=== PATIENT | female | born 1950 ===

== ENCOUNTER 2016-08-01 12:05 | Emergency (ER) | payer MEDICARE, OTHER ==
[2016-08-01 12:33] VITALS: BMI 32.0
[2016-08-01 12:35] VITALS: TEMP 98.1
--- NOTE | 2016-08-01 13:33 | C.PDOC ---
History Of Present Illness 66 y/o female presents to ED with c/o left lower back pain. Patient states she injured her back while getting into a car yesterday, reporting twisting injury. Denies radiation of pain, neurological deficits, bowel or urinary incontinence, abdominal pain, nausea, vomiting, dysuria, fever, chills, chest pain, or other associated symptoms. Patient denies any trauma. Time Seen by Provider: 08/01/16 13:11 Chief Complaint (Nursing): Lower Extremity Problem/Injury History Per: Patient History/Exam Limitations: no limitations Onset/Duration Of Symptoms: Days Current Symptoms Are (Timing): Still Present Recent travel outside of the [place] States: No Past Medical History Reviewed: Historical Data, Nursing Documentation, Vital Signs Vital Signs: Last Vital Signs Temp 98.1 F 08/01/16 12:34 Pulse 61 08/01/16 12:34 Resp 17 08/01/16 12:34 BP 115/64 08/01/16 12:34 Pulse Ox 100 08/01/16 14:02 - Medical History PMH: Asthma, COPD, Hypercholesterolemia - [facility] Procedures EXCISION OF STOMACH, ENDO, DIAGN (11/23/15) INJECT/INFUSE NEC (04/24/06) MAGNETIC RESONANCE IMAGING OF BRAIN AND BRAIN STEM (04/10/04) MAGNETIC RESONANCE IMAGING OF SPINAL CANAL (04/10/04) NEBULIZER THERAPY (08/24/02) RESECTION OF GALLBLADDER, PERCUTANEOUS ENDOSCOPIC APPROACH (11/23/15) Family History: States: Unknown Family Hx - Social History Hx Tobacco Use: No (Quit) Hx Alcohol Use: Yes Hx Substance Use: No - Immunization History Hx Tetanus Toxoid Vaccination: No Hx Influenza Vaccination: No Hx Pneumococcal Vaccination: Yes Review Of Systems Except As Marked, All Systems Reviewed And Found Negative. Constitutional: Negative for: Fever, Chills Cardiovascular: Negative for: Chest Pain Respiratory: Negative for: Shortness of Breath Gastrointestinal: Negative for: Nausea, Vomiting, Abdominal Pain Musculoskeletal: Positive for: Back Pain. Negative for: Neck Pain Skin: Negative for: Rash Neurological: Negative for: Weakness, Numbness, Headache Physical Exam - Physical Exam Appears: Non-toxic, No Acute Distress Skin: Normal Color, Warm, Dry Head: Atraumatic, Normacephalic Neck: Normal ROM, No Midline Cervical Tenderness, No Paracervical Tenderness, No Step Off Deformity, Supple Chest: Symmetrical Cardiovascular: Rhythm Regular Respiratory: Normal Breath Sounds, No Rales, No Rhonchi, No Wheezing Gastrointestinal/Abdominal: Soft, No Tenderness, No Guarding, No Rebound Back: No Vertebral Tenderness, Paraspinal Tenderness (left, lumbar) Extremity: Normal ROM, Capillary Refill (< 2 sec. ) Extremity: Bilateral: Normal Color And Temperature Neurological/Psych: Oriented x3, Normal Speech, Normal Cognition, Normal Motor, Normal Sensation ED Course And Treatment O2 Sat by Pulse Oximetry: 100 (RA) Pulse Ox Interpretation: Normal Progress Note: pt feeling decreased pain, appears more comfortable. will d/c with flexeril and motrin. pmd f/u Reevaluation Time: 13:58 Reassessment Condition: Improved Medical Decision Making Medical Decision Making: Plan: * Toradol * Flexeril * Reassess Progress: Disposition - Disposition Referrals: Melida Soto MD [Primary Care Provider] - Disposition: HOME/ ROUTINE Disposition Time: 13:58 Condition: IMPROVED Additional Instructions: Take medications as prescribed. Muscle relaxants will make you sleepy- do not drive, operate machinery, while taking these. Follow up with Dr Soto in a few days. Return to ER for any worsneing symptoms. 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 - Scribe Statement The provider has reviewed the documentation as recorded by the Joseph Costello All medical record entries made by the Joseph were at my direction and personally dictated by me. I have reviewed the chart and agree that the record accurately reflects my personal performance of the history, physical exam, medical decision making, and the department course for this patient. I have also personally directed, reviewed, and agree with the discharge instructions and disposition.
[2016-08-01 14:11] VITALS: BP 132/75; PULSE 65; RESP 18
[2016-08-02 13:44] VITALS: O2SAT 100
== END 2016-08-01 14:20 | disposition home or self-care (01) ==
LOC: SUPCPDRO 12:05 → C.ER 12:05
DX: M54.5 Low back pain (principal)
CPT/HCPCS: 96372; 99285; J1885

== ENCOUNTER 2017-09-06 13:56 | Inpatient (IN) | payer MEDICARE, OTHER ==
[2017-09-06 13:56] VITALS: BMI 32.0
[2017-09-06] MEDS ORDERED: Sodium Chloride 0.9% 1,000 ML IV SCH (15:00)
[2017-09-06 15:22] LABS: BASO # 0.1 K/uL (0.0-0.2); BASO % 1.4 % (0.0-2.0); EOS # 0.3 K/uL (0.0-0.7); EOS % 4.3 % (0.0-4.0); HEMOGLOBIN 10.2 g/dL (11.0-16.0); LYMPH # 2.7 K/uL (1.0-4.3); LYMPH % 33.3 % (20.0-40.0); MEAN CELL VOLUME 76.2 fL (81.0-99.0); MEAN CORPUSCULAR HEMOGLOBIN 24.2 pg (27.0-31.0); MEAN CORPUSCULAR HGB CONC 31.7 g/dL (33.0-37.0); MEAN PLATELET VOLUME 8.9 fL (7.2-11.7); MONO # 0.8 K/uL (0.0-0.8); MONO % 9.4 % (0.0-10.0); NEUT # 4.1 K/uL (1.8-7.0); NEUT % 51.6 % (50.0-75.0); RBC 4.23 Mil/uL (3.80-5.20); RED CELL DISTRIBUTION WIDTH 16.3 % (11.5-14.5)
[2017-09-06] MEDS ORDERED: Sodium Chloride 0.9% 1,000 ML ONE (15:22)
[2017-09-06 15:25] LABS: SQUAMOUS EPITHIAL 3 /hpf (0-5); URINE BACTERIA RARE (<OCC); URINE BILIRUBIN NEGATIVE (NEGATIVE); URINE BLOOD NEGATIVE (NEGATIVE); URINE CLARITY Hazy (Clear); URINE COLOR Yellow (YELLOW); URINE GLUCOSE (UA) NORMAL (Normal); URINE LEUKOCYTE ESTERASE TRACE Leu/uL (Negative); URINE PROTEIN NEGATIVE (NEGATIVE); URINE UROBILINOGEN NORMAL mg/dL (0.2-1.0)
[2017-09-06 15:30] LABS: INR 1.1; PROTHROMBIN TIME 11.6 SECONDS (9.7-12.2)
[2017-09-06 15:31] LABS: ALB/GLOB RATIO 1.2 (1.0-2.1); ALBUMIN 4.2 g/dL (3.5-5.0); ALT/SGPT 30 U/L (9-52); AST/SGOT 24 U/L (14-36); BLOOD UREA NITROGEN 16 mg/dL (7-17); GFR AFRICAN-AMERICAN > 60; GFR NON-AFRICAN AMERICAN > 60; HDL CHOLESTEROL 42 mg/dL (30-70)
[2017-09-06 15:42] LABS: LDL CHOLESTEROL 102 mg/dL (0-129)
--- NOTE | 2017-09-06 15:43 | CT ---
PROCEDURE: CT HEAD WITHOUT CONTRAST. HISTORY: increased R body weak, h/o CVA with R body weak COMPARISON: None available. TECHNIQUE: Axial computed tomography images were obtained through the head/brain without intravenous contrast. Radiation dose: Total exam DLP = 51.4 mGy-cm. This CT exam was performed using one or more of the following dose reduction techniques: Automated exposure control, adjustment of the mA and/or kV according to patient size, and/or use of iterative reconstruction technique. FINDINGS: HEMORRHAGE: No acute intracranial hemorrhage. BRAIN: Encephalomalacia in the medial right frontal lobe. Aneurysm clips versus coil mass in the medial left frontal lobe and in the right parasellar atrophy. Mild chronic microvascular ischemic changes region. VENTRICLES: Unremarkable. No hydrocephalus. CALVARIUM: Multiple craniotomy/ cranioplasty defects. PARANASAL SINUSES: Unremarkable as visualized. No significant inflammatory changes. MASTOID AIR CELLS: Unremarkable as visualized. No inflammatory changes. OTHER FINDINGS: None. IMPRESSION: No acute intracranial pathology. Nonacute findings as above.
[2017-09-06] MEDS ORDERED: Aspirin 325 mg EC Tablets PO STA (16:36)
--- NOTE | 2017-09-06 16:36 | C.PDOC ---
History Of Present Illness 67 y/o female presents to the ER complaining increased edema to face, right arm , and right leg. Patient states that she feels a sensation of swelling. Patient reports that she sleeps in various positions throughout the night. She notes that she has a history of CVA (R>L weakness). Time Seen by Provider: 09/06/17 14:50 Chief Complaint (Nursing): Medical Clearance History Per: Patient History/Exam Limitations: no limitations Onset/Duration Of Symptoms: Hrs Current Symptoms Are (Timing): Still Present Severity: Moderate Past Medical History Reviewed: Historical Data, Nursing Documentation, Vital Signs Vital Signs: Last Vital Signs Temp 97.6 F 09/06/17 20:00 Pulse 82 09/06/17 20:00 Resp 20 09/06/17 20:00 BP 133/79 09/06/17 20:00 Pulse Ox 97 09/06/17 20:00 - Medical History PMH: Asthma, COPD, CVA, Hypercholesterolemia Denies: Chronic Kidney Disease Other Surgeries: Hx of surgeries - [facility] Procedures EXCISION OF STOMACH, ENDO, DIAGN (11/23/15) INJECT/INFUSE NEC (04/24/06) MAGNETIC RESONANCE IMAGING OF BRAIN AND BRAIN STEM (04/10/04) MAGNETIC RESONANCE IMAGING OF SPINAL CANAL (04/10/04) NEBULIZER THERAPY (08/24/02) RESECTION OF GALLBLADDER, PERCUTANEOUS ENDOSCOPIC APPROACH (11/23/15) Family History: States: No Known Family Hx - Social History Hx Tobacco Use: No (Quit) Hx Alcohol Use: Yes Hx Substance Use: No - Immunization History Hx Tetanus Toxoid Vaccination: No Hx Influenza Vaccination: No Hx Pneumococcal Vaccination: Yes Review Of Systems Except As Marked, All Systems Reviewed And Found Negative. Constitutional: Negative for: Fever, Chills Skin: Positive for: Other (increased edema) Physical Exam - Physical Exam Appears: Non-toxic, No Acute Distress Skin: Normal Color, Warm, Dry Head: Atraumatic, Normacephalic, Other ((-) facial droop) Nose: Normal Oral Mucosa: Moist Neck: Supple Chest: Symmetrical Cardiovascular: Rhythm Regular Respiratory: Normal Breath Sounds, No Rales, No Rhonchi, No Wheezing Gastrointestinal/Abdominal: Normal Exam, Soft, No Tenderness, No Guarding, No Rebound Extremity: Normal ROM, Other (4 extremities - obese with edema, ankle splint to prevent plantar fasciitis) Neurological/Psych: Oriented x3, Normal Speech, Normal Motor (4/5 strength to right leg), Normal Sensation ED Course And Treatment - Laboratory Results Result Diagrams: 09/06/17 15:16 09/06/17 15:16 Lab Interpretation: Normal (UA neg.) ECG: Interpreted By Sd ECG Rhythm: Sinus Rhythm ECG Interpretation: Normal Rate From EC O2 Sat by Pulse Oximetry: 99 (RA) Pulse Ox Interpretation: Normal - Radiology CXR: Interpreted by Sd CXR Interpretation: Yes: No Acute Disease - CT Scan/US CT-Head Other Rad Studies (CT/US): Read By Radiologist, Radiology Report Reviewed CT/US Interpretation: PROCEDURE: CT HEAD WITHOUT CONTRAST. HISTORY: increased R body weak, h/o CVA with R body weak. COMPARISON: None available. TECHNIQUE: Axial computed tomography images were obtained through the head/ brain without intravenous contrast. Radiation dose: Total exam DLP = 51.4 mGy- cm. This CT exam was performed using one or more of the following dose reduction techniques: Automated exposure control, adjustment of the mA and/or kV according to patient size, and/or use of iterative reconstruction technique. FINDINGS: HEMORRHAGE: No acute intracranial hemorrhage. BRAIN: Encephalomalacia in the medial right frontal lobe. Aneurysm clips versus coil mass in the medial left frontal lobe and in the right parasellar atrophy. Mild chronic microvascular ischemic changes region. VENTRICLES: Unremarkable. No hydrocephalus. CALVARIUM: Multiple craniotomy/ cranioplasty defects. PARANASAL SINUSES: Unremarkable as visualized. No significant inflammatory changes. MASTOID AIR CELLS: Unremarkable as visualized. No inflammatory changes. OTHER FINDINGS: None. IMPRESSION: No acute intracranial pathology. Nonacute findings as above. Reevaluation Time: 16:33 Reassessment Condition: Unchanged (remains asymptomatic and normal b/l extremeties without edema.) - Physician Consult Information Outcome Of Conversation: [id number]: d/w Dr. Walker, Hospitalist- covering pt's for Dr. Alycia boo to admit. plan Neuro Consult and MRI NIHSS Stroke Scale 2 - Date/Time Evaluation Performed Date Performed: 09/06/17 Time Performed: 14:50 When Was NIHSS Performed: Baseline - How Severe is the Stroke Level of Consciousness: 0=Alert LOC to Questions: 0=Both comments correct LOC to commands: 0=Obeys both correctly Best Gaze: 0=Normal Visual: 0=No visual loss Facial: 0=Normal Motor Arm - Left: 0=No drift Motor Arm - Right: 0=No drift Motor Leg - Left: 0=No drift Motor Leg - Right: 1=Drift before 5 sec Limb Ataxia: 0=Absent Sensory: 0=Normal Best Language: 0=No aphasia Dysarthia: 0=Normal articulation Extinction & Inattention (Neglect): 0=Normal, no object Score: 1 rTPA Inclusion/Exclusion - Refusal of Treatment Patient Refused Treatment: No - Inclusion Criteria for Altepase Patient is 18 years or Older: Yes The Clinical Diagnosis of Ischemic Stroke That is Causing a Potentially Disabling Neurological Deficit: No Time of Onset is Well Established to be Less Than 270 Minute Before Treatment Would Begin: No Risk/Benefit Discussed With Patient/Family Member Present: No - Exclusion Criteria for Altepase Uncontrolled Hypertension at Time of Treatment (Systolic BP above 185 or Diastolic BP above 110 mmHg): No Less Than 3 Months Had a Recent: Intracranial History of: Intracranial hemorrhage Active Internal Bleeding: No Known Bleeding Diathesis Including but Not Limited to: Platelets Below 100,000/ mm,PTT Above 40 sec After Heparin Use, Current Use of Oral Anitcoagulant With INR Greater Than 1.7 or PT Greater Than 15 secs: No Evidence of an Intracranial Hemorrhage: No Evidence of Major Acute Infarct With Signs Greater Than 1/3 MCA Territory: No Suspicion of Subarachnoid Hemorrhage on Pretreatment Evaluation Even if CT Head Negative For Hemorrhage: No - Warning to TPA With Conditions Following Conditions Weighed Against Anticipated Benefit: No Condition: Stroke Serevity Too Mild Medical Decision Making Medical Decision Making: NO new R arm edema nor facial droop No new CT head changes adm for f/u and Neuro consult. Disposition Doctor Will See Patient In The: Hospital Counseled Patient/Family Regarding: Studies Performed, Diagnosis - Disposition Disposition: HOSPITALIZED Disposition Time: 16:40 Condition: GOOD - Clinical Impression Clinical Impression: Weakness of right side of body - Scribe Statement The provider has reviewed the documentation as recorded by the Joseph Souza Provider Attestation: All medical record entries made by the Joseph were at my direction and personally dictated by me. I have reviewed the chart and agree that the record accurately reflects my personal performance of the history, physical exam, medical decision making, and the department course for this patient. I have also personally directed, reviewed, and agree with the discharge instructions and disposition.
--- NOTE | 2017-09-06 16:42 | RAD ---
HISTORY: Code Stroke COMPARISON: Chest radiograph dated 02/22/2016. FINDINGS: LUNGS: No active pulmonary disease. PLEURA: No significant pleural effusion identified, no pneumothorax apparent. CARDIOVASCULAR: Atherosclerotic aortic calcifications. Cardiomediastinal silhouette within normal limits. OSSEOUS STRUCTURES: Unchanged. VISUALIZED UPPER ABDOMEN: Normal. OTHER FINDINGS: None. IMPRESSION: No active disease.
[2017-09-06] MEDS ORDERED: Albuterol HFA 90 mcg/actuation (8 g) INH PRN (20:03)
--- NOTE | 2017-09-06 20:50 | CP.PCM.HP ---
<Bee Alford P - Last Filed: 09/06/17 23:18> History of Present Illness - History of Present Illness History of Present Illness: 67 yo Female with past medical history of CVA with residual R sided weakness ( 2006), Hyperlipidemia, and COPD presents to the ED complaining of gradual increase of RLE weakness for the past month, which worsens with ambulation and standing from seated position. Pt normally walks with cane and R leg brace. Patient complains of lower extremity swelling for the past week, also R eye and RUE swelling that began upon awaking today. States. Patient states her son became concerned because "she did not look good" prompting her to come to ED. No relieving factors noted. Patient denies fever, chills, headache, numbness, tingling, acute change in vision, acute change in hearing, chest pain, palpitations, shortness of breath. PMHx: CVA with residual R sided weakness (2006), Hyperlipidemia, and COPD PSHx: Brain aneurysm repair 2004, Surgical clipping sp hemorrhagic stroke 2006, Lap cholecystectomy 2015, breast cyst removal 1998, Hysterectomy 1986, R foot surgery 1985, 1977. Allergies: NKDA Meds: Ventalin 2 puffs Q4 PRN, Crestor 10mg daily, Declofenac topical TID PRN, aggrenox-unknown dose (will confirm with pt's pharmacy [phone]) Family Hx: Mother-Epilepsy, (age 40s), Father-Liver cirrhosis, . Sister- breast cancer, (age 40s). Social: former smoker- 30 pack years, quit in 1999. 1-2 beers on the weekends. Denies illicit drug use. Retired security vehicle patrol officer. Lives with partner. Present on Admission - Present on Admission Any Indicators Present on Admission: No History of DVT/PE: No History of Uncontrolled Diabetes: No Urinary Catheter: No Decubitus Ulcer Present: No Past Patient History - Infectious Disease Hx of Infectious Diseases: None - Past Medical History & Family History Past Medical History?: Yes - Past Social History Smoking Status: Former Smoker - CARDIAC Hx Hypercholesterolemia: Yes - PULMONARY Hx Asthma: Yes Hx Chronic Obstructive Pulmonary Disease (COPD): Yes - NEUROLOGICAL HX Cerebrovascular Accident: Yes (2006) - HEENT Hx HEENT Problems: No - RENAL Hx Chronic Kidney Disease: No - ENDOCRINE/METABOLIC Hx Endocrine Disorders: No - HEMATOLOGICAL/ONCOLOGICAL Hx Blood Disorders: No - INTEGUMENTARY Hx Dermatological Problems: No - MUSCULOSKELETAL/RHEUMATOLOGICAL Hx Musculoskeletal Disorders: No Hx Falls: No - GASTROINTESTINAL Hx Gastrointestinal Disorders: No - GENITOURINARY/GYNECOLOGICAL Hx Genitourinary Disorders: No - PSYCHIATRIC Hx Substance Use: No - SURGICAL HISTORY Hx Surgeries: Yes Other/Comment: Cerebral aneurysm repair 2007 - ANESTHESIA Hx Anesthesia: Yes Hx Anesthesia Reactions: No Meds Allergies/Adverse Reactions: Allergies Allergy/AdvReac Type Severity Reaction Status Date / Time No Known Allergies Allergy Verified 09/06/17 14:07 Physical Exam - Constitutional Appears: Well, No Acute Distress - Head Exam Head Exam: ATRAUMATIC, NORMOCEPHALIC - Eye Exam Eye Exam: EOMI, PERRL Pupil Exam: NORMAL ACCOMODATION Additional comments: Mild infraorbital swelling noted on R. - ENT Exam ENT Exam: Mucous Membranes Moist - Neck Exam Neck exam: Positive for: Full Rom - Respiratory Exam Respiratory Exam: Clear to Auscultation Bilateral. absent: Rales, Rhonchi, Wheezes - Cardiovascular Exam Cardiovascular Exam: REGULAR RHYTHM, +S1, +S2. absent: Systolic Murmur - GI/Abdominal Exam GI & Abdominal Exam: Normal Bowel Sounds, Soft. absent: Tenderness - Extremities Exam Additional comments: trace edema noted bilateral lower extremities; non-tender to palpation. No edema noted to bilateral upper extremities; non-tender to palpation, full ROM. - Neurological Exam Neurological exam: Alert, CN II-XII Intact, Oriented x3 Additional comments: 5/5 muscle strength bilateral upper extremities. 4/5 strength R lower extremity. 5/5 strength L lower extremity. Decreased sensation to RLE, otherwise sensation intact. - Psychiatric Exam Psychiatric exam: Normal Affect, Normal Mood - Skin Skin Exam: Dry, Intact, Warm Results - Vital Signs Recent Vital Signs: Last Vital Signs Temp 98.5 F 09/06/17 14:05 Pulse 64 09/06/17 18:48 Resp 21 09/06/17 18:48 BP 128/94 H 09/06/17 18:48 Pulse Ox 98 09/06/17 18:48 - Labs Result Diagrams: 09/06/17 15:16 09/06/17 15:16 Labs: Laboratory Results - last 24 hr 09/06/17 09/06/17 09/06/17 15:05 15:16 15:16 WBC 8.0 RBC 4.23 Hgb 10.2 L D Hct 32.2 L MCV 76.2 L D MCH 24.2 L MCHC 31.7 L RDW 16.3 H Plt Count 303 MPV 8.9 Neut % (Auto) 51.6 Lymph % (Auto) 33.3 [place] % (Auto) 9.4 Eos % (Auto) 4.3 H Baso % (Auto) 1.4 Neut # (Auto) 4.1 Lymph # (Auto) 2.7 [place] # (Auto) 0.8 Eos # (Auto) 0.3 Baso # (Auto) 0.1 PT 11.6 INR 1.1 APTT 32 Sodium Potassium Chloride Carbon Dioxide Anion Gap BUN Creatinine Est GFR ( Amer) Est GFR (Non-Af Amer) POC Glucose (mg/dL) 96 Random Glucose Hemoglobin A1c Calcium Total Bilirubin AST ALT Alkaline Phosphatase Troponin I Total Protein Albumin Globulin Albumin/Globulin Ratio Triglycerides Cholesterol LDL Cholesterol Direct HDL Cholesterol Urine Color Urine Clarity Urine pH Ur Specific [place] Urine Protein Urine Glucose (UA) Urine Ketones Urine Blood Urine Nitrate Urine Bilirubin Urine Urobilinogen Ur Leukocyte Esterase Urine WBC (Auto) Urine RBC (Auto) Ur Squamous Epith Cells Urine Bacteria 09/06/17 09/06/17 09/06/17 15:16 15:16 15:16 WBC RBC Hgb Hct MCV MCH MCHC RDW Plt Count MPV Neut % (Auto) Lymph % (Auto) [place] % (Auto) Eos % (Auto) Baso % (Auto) Neut # (Auto) Lymph # (Auto) [place] # (Auto) Eos # (Auto) Baso # (Auto) PT INR APTT Sodium 143 Potassium 4.3 Chloride 107 Carbon Dioxide 27 Anion Gap 14 BUN 16 Creatinine 0.8 Est GFR ( Amer) > 60 Est GFR (Non-Af Amer) > 60 POC Glucose (mg/dL) Random Glucose 100 Hemoglobin A1c 6.0 Calcium 9.0 Total Bilirubin 0.7 AST 24 ALT 30 Alkaline Phosphatase 84 Troponin I < 0.0120 Total Protein 7.6 Albumin 4.2 Globulin 3.4 Albumin/Globulin Ratio 1.2 Triglycerides 66 D Cholesterol 161 LDL Cholesterol Direct 102 HDL Cholesterol 42 Urine Color Yellow Urine Clarity Hazy Urine pH 5.0 Ur Specific [place] 1.020 Urine Protein Negative Urine Glucose (UA) Normal Urine Ketones Negative Urine Blood Negative Urine Nitrate Negative Urine Bilirubin Negative Urine Urobilinogen Normal Ur Leukocyte Esterase Trace Urine WBC (Auto) 4 Urine RBC (Auto) 1 Ur Squamous Epith Cells 3 Urine Bacteria Rare Assessment & Plan - Assessment and Plan (Free Text) Assessment: 67 yo Female with past medical history of CVA with residual R sided weakness ( 2006), Hyperlipidemia, and COPD presents to the ED complaining of gradual increase of RLE weakness for the past month. Plan: 1. Increasing R lower extremity weakness-Hx CVA -Head CT: encephalomalacia medial R frontal lobe. Aneurysm clip vs coil mass in medial L frontal lobe. Mild chronic microvascular ischemic changes. -As per patient, past history of aneurysm repair 2004 and surgical clip placement 2016 (performed either [facility] or [facility]). F/u with medical records to determine MRI compatibility. -Neurology, Dr. Driscoll, consulted. Help appreciated. Consider MRI of brain pending prior surgical clip MRI compatibility. -Carotid doppler -Lipid panel: Chl-161, LDL-102, HLD-48, Tryglycerides-66 -PT/OT 2. COPD -continue home med albuterol 2 Puff INH RQ4H PRN 3. Hyperlipidemia -Continue home med Crestor 10mg PO HS 4. Prophylactic Measures -Protonix 40mg PO daily -Heparin 5000u SC Q8H -PT/OT - Date & Time Date: 09/06/17 Time: 18:00 <Urbano Ferrera - Last Filed: 09/08/17 17:37> Results - Vital Signs Recent Vital Signs: Last Vital Signs Temp 97.7 F 09/07/17 07:00 Pulse 63 09/07/17 07:00 Resp 20 09/07/17 07:00 BP 107/68 09/07/17 07:00 Pulse Ox 96 09/07/17 07:00 - Labs Result Diagrams: 09/07/17 06:52 09/07/17 06:52 Labs: Laboratory Results - last 24 hr 09/06/17 09/06/17 09/06/17 15:05 15:16 15:16 WBC 8.0 RBC 4.23 Hgb 10.2 L D Hct 32.2 L MCV 76.2 L D MCH 24.2 L MCHC 31.7 L RDW 16.3 H Plt Count 303 MPV 8.9 Neut % (Auto) 51.6 Lymph % (Auto) 33.3 [place] % (Auto) 9.4 Eos % (Auto) 4.3 H Baso % (Auto) 1.4 Neut # (Auto) 4.1 Lymph # (Auto) 2.7 [place] # (Auto) 0.8 Eos # (Auto) 0.3 Baso # (Auto) 0.1 PT 11.6 INR 1.1 APTT 32 Sodium Potassium Chloride Carbon Dioxide Anion Gap BUN Creatinine Est GFR ( Amer) Est GFR (Non-Af Amer) POC Glucose (mg/dL) 96 Random Glucose Hemoglobin A1c Calcium Phosphorus Magnesium Total Bilirubin AST ALT Alkaline Phosphatase Troponin I Total Protein Albumin Globulin Albumin/Globulin Ratio Triglycerides Cholesterol LDL Cholesterol Direct HDL Cholesterol Free T4 TSH 3rd Generation Urine Color Urine Clarity Urine pH Ur Specific [place] Urine Protein Urine Glucose (UA) Urine Ketones Urine Blood Urine Nitrate Urine Bilirubin Urine Urobilinogen Ur Leukocyte Esterase Urine WBC (Auto) Urine RBC (Auto) Ur Squamous Epith Cells Urine Bacteria 09/06/17 09/06/17 09/06/17 15:16 15:16 15:16 WBC RBC Hgb Hct MCV MCH MCHC RDW Plt Count MPV Neut % (Auto) Lymph % (Auto) [place] % (Auto) Eos % (Auto) Baso % (Auto) Neut # (Auto) Lymph # (Auto) [place] # (Auto) Eos # (Auto) Baso # (Auto) PT INR APTT Sodium 143 Potassium 4.3 Chloride 107 Carbon Dioxide 27 Anion Gap 14 BUN 16 Creatinine 0.8 Est GFR ( Amer) > 60 Est GFR (Non-Af Amer) > 60 POC Glucose (mg/dL) Random Glucose 100 Hemoglobin A1c 6.0 Calcium 9.0 Phosphorus Magnesium Total Bilirubin 0.7 AST 24 ALT 30 Alkaline Phosphatase 84 Troponin I < 0.0120 Total Protein 7.6 Albumin 4.2 Globulin 3.4 Albumin/Globulin Ratio 1.2 Triglycerides 66 D Cholesterol 161 LDL Cholesterol Direct 102 HDL Cholesterol 42 Free T4 TSH 3rd Generation Urine Color Yellow Urine Clarity Hazy Urine pH 5.0 Ur Specific [place] 1.020 Urine Protein Negative Urine Glucose (UA) Normal Urine Ketones Negative Urine Blood Negative Urine Nitrate Negative Urine Bilirubin Negative Urine Urobilinogen Normal Ur Leukocyte Esterase Trace Urine WBC (Auto) 4 Urine RBC (Auto) 1 Ur Squamous Epith Cells 3 Urine Bacteria Rare 09/07/17 09/07/17 09/07/17 06:52 06:52 06:52 WBC 7.6 RBC 4.22 Hgb 10.1 L Hct 31.5 L MCV 74.7 L MCH 23.8 L MCHC 31.9 L RDW 16.2 H Plt Count 295 MPV 9.2 Neut % (Auto) 44.0 L Lymph % (Auto) 39.4 [place] % (Auto) 9.8 Eos % (Auto) 5.6 H Baso % (Auto) 1.2 Neut # (Auto) 3.3 Lymph # (Auto) 3.0 [place] # (Auto) 0.7 Eos # (Auto) 0.4 Baso # (Auto) 0.1 PT INR APTT Sodium 143 Potassium 4.1 Chloride 108 H Carbon Dioxide 25 Anion Gap 15 BUN 14 Creatinine 0.7 Est GFR ( Amer) > 60 Est GFR (Non-Af Amer) > 60 POC Glucose (mg/dL) Random Glucose 106 H Hemoglobin A1c Calcium 8.5 L Phosphorus 3.2 Magnesium 2.0 Total Bilirubin 0.5 AST 28 ALT 27 Alkaline Phosphatase 75 Troponin I Total Protein 6.6 Albumin 3.6 Globulin 3.0 Albumin/Globulin Ratio 1.2 Triglycerides Cholesterol LDL Cholesterol Direct HDL Cholesterol Free T4 0.83 TSH 3rd Generation 2.74 Urine Color Urine Clarity Urine pH Ur Specific [place] Urine Protein Urine Glucose (UA) Urine Ketones Urine Blood Urine Nitrate Urine Bilirubin Urine Urobilinogen Ur Leukocyte Esterase Urine WBC (Auto) Urine RBC (Auto) Ur Squamous Epith Cells Urine Bacteria Attending/Attestation - Attestation I have personally seen and examined this patient.: Yes I have fully participated in the care of the patient.: Yes I have reviewed all pertinent clinical information: Yes Notes (Text): Seen and examined at ER,History obtained from the patient 1.Increasing R lower extremity weakness-Hx CVA Head CT: encephalomalacia medial R frontal lobe. Aneurysm clip vs coil mass in medial L frontal lobe. Mild chronic microvascular ischemic changes. past history of aneurysm repair 2004 and surgical clip placement 2016 ( performed either [facility] or [facility]). F/u with medical D/W Dr. Driscoll, Consider MRI of brain if his surgical clip MRI compatible/get records from [facility] Do Carotid doppler 2. COPD-stable 3. Hyperlipidemia Crestor 10mg PO HS Discussed with resident and i agree with the documentation
[2017-09-06 23:49] VITALS: RESP 20
[2017-09-07 07:04] LABS: BASO # 0.1 K/uL (0.0-0.2); BASO % 1.2 % (0.0-2.0); EOS # 0.4 K/uL (0.0-0.7); EOS % 5.6 % (0.0-4.0); HEMOGLOBIN 10.1 g/dL (11.0-16.0); LYMPH % 39.4 % (20.0-40.0); MEAN CELL VOLUME 74.7 fL (81.0-99.0); MEAN CORPUSCULAR HEMOGLOBIN 23.8 pg (27.0-31.0); MEAN CORPUSCULAR HGB CONC 31.9 g/dL (33.0-37.0); MEAN PLATELET VOLUME 9.2 fL (7.2-11.7); MONO # 0.7 K/uL (0.0-0.8); MONO % 9.8 % (0.0-10.0); NEUT # 3.3 K/uL (1.8-7.0); RBC 4.22 Mil/uL (3.80-5.20); RED CELL DISTRIBUTION WIDTH 16.2 % (11.5-14.5); WHITE BLOOD COUNT 7.6 K/uL (4.8-10.8)
[2017-09-07 07:20] LABS: ALB/GLOB RATIO 1.2 (1.0-2.1); ALBUMIN 3.6 g/dL (3.5-5.0); ALT/SGPT 27 U/L (9-52); AST/SGOT 28 U/L (14-36); BLOOD UREA NITROGEN 14 mg/dL (7-17); CALCIUM 8.5 mg/dl (8.6-10.4); GFR AFRICAN-AMERICAN > 60; GFR NON-AFRICAN AMERICAN > 60
[2017-09-07] MEDS ORDERED: Pantoprazole 40 mg EC Tab PO SCH (10:00)
--- NOTE | 2017-09-07 11:25 | CP.PCM.CON ---
History of Present Illness - History of Present Illness History of Present Illness: PGY-[address] Driscoll's service Ms. Bullard is a 67 yo F with PMHx of of CVA w/ residual R sided weakness (2006), hyperlipidemia, and COPD who presented to the ED complaining of gradually increasing RLE weakness for the past month which worsens with ambulation and standing from seated position. Pt normally walks with cane and has a R leg brace. She states she also had RUE and R facial swelling yesterday morning upon waking, no inciting factors noted. Neurology consulted for R leg weakness, hx of R CVA. On examination this morning, the swelling subsided. Muscle strength is clinically improving and patient is able to ambulate. She denies any headaches, numbness, tingling, or acute changes in vision or hearing. No other complaints noted. PMHx: CVA with residual R sided weakness (2006), Hyperlipidemia, and COPD PSHx: Brain aneurysm repair 2004, Surgical clipping sp hemorrhagic stroke 2006, Lap cholecystectomy 2015, breast cyst removal 1998, Hysterectomy 1986, R foot surgery 1985, 1977. Family Hx: Mother-Epilepsy, (age 40s), Father-Liver cirrhosis, . Sister- breast cancer, (age 40s). Social Hx: former smoker- 30 pack years, quit in 1999. 1-2 beers on the weekends. Denies illicit drug use. Retired security associate. Lives with partner Allergies: NKDA Meds: Ventalin 2 puffs Q4 PRN, ASA 81 mg PO daily, Dipyridamole 100 mg PO BID, Heparin 5000 units SC q8, Crestor 10mg daily,Protonix 40 mg PO daily Review of Systems - Constitutional Constitutional: absent: Headache, Weakness - EENT Eyes: absent: Blind Spots, Blurred Vision, Change in Vision, Diplopia Ears: absent: Decreased Hearing, Tinnitus, Abnormal Hearing, Dizziness - Neurological Neurological: absent: Abnormal Gait, Abnormal Speech, Confusion, Convulsions, Disequilibrium, Dizziness, Numbness, Frequent Falls, Headaches, Lack of Coordination, Loss of Vision, Sensory Deficit, Syncope, Tingling, Tremor, Weakness Past Patient History - Infectious Disease Hx of Infectious Diseases: None - Past Medical History & Family History Past Medical History?: Yes - Past Social History Smoking Status: Former Smoker - CARDIAC Hx Hypercholesterolemia: Yes - PULMONARY Hx Asthma: Yes Hx Chronic Obstructive Pulmonary Disease (COPD): Yes - NEUROLOGICAL HX Cerebrovascular Accident: Yes (2006) - HEENT Hx HEENT Problems: No - RENAL Hx Chronic Kidney Disease: No - ENDOCRINE/METABOLIC Hx Endocrine Disorders: No - HEMATOLOGICAL/ONCOLOGICAL Hx Blood Disorders: No - INTEGUMENTARY Hx Dermatological Problems: No - MUSCULOSKELETAL/RHEUMATOLOGICAL Hx Musculoskeletal Disorders: No Hx Falls: No - GASTROINTESTINAL Hx Gastrointestinal Disorders: No - GENITOURINARY/GYNECOLOGICAL Hx Genitourinary Disorders: No - PSYCHIATRIC Hx Substance Use: No - SURGICAL HISTORY Hx Surgeries: Yes Other/Comment: Cerebral aneurysm repair 2006 - ANESTHESIA Hx Anesthesia: Yes Hx Anesthesia Reactions: No Meds Allergies/Adverse Reactions: Allergies Allergy/AdvReac Type Severity Reaction Status Date / Time No Known Allergies Allergy Verified 09/06/17 14:07 - Medications Medications: Current Medications Albuterol (Ventolin Hfa 90 Mcg/Actuation (8 G)) 2 puff INH RQ4 PRN PRN Reason: Shortness of Breath Aspirin (Aspirin Chewable) 81 mg PO DAILY [facility] Last Admin: 09/07/17 09:35 Dose: 81 mg Dipyridamole (Persantine) 100 mg PO BID [facility] Last Admin: 09/07/17 09:36 Dose: 100 mg Heparin Sodium (Porcine) (Heparin) 5,000 units SC Q8 [facility] Last Admin: 09/06/17 21:47 Dose: 5,000 units Pantoprazole Sodium (Protonix Ec Tab) 40 mg PO DAILY [facility] Last Admin: 09/07/17 09:35 Dose: 40 mg Rosuvastatin Calcium (Crestor) 10 mg PO HS [facility] Last Admin: 09/06/17 21:46 Dose: 10 mg Physical Exam - Constitutional Appears: Well, No Acute Distress - Head Exam Head Exam: ATRAUMATIC, NORMAL INSPECTION, NORMOCEPHALIC - Eye Exam Eye Exam: EOMI, Normal appearance, PERRL. absent: Nystagmus, Periorbital swelling, Scleral icterus Pupil Exam: NORMAL ACCOMODATION, PERRL - ENT Exam ENT Exam: Normal Exam - Neck Exam Neck exam: Positive for: Normal Inspection - Respiratory Exam Respiratory Exam: Clear to Auscultation Bilateral - Cardiovascular Exam Cardiovascular Exam: REGULAR RHYTHM, +S1, +S2 - Neurological Exam Neurological exam: Alert, CN II-XII Intact, Oriented x3 - Expanded Neurological Exam Expanded Cranial nerves: EOM's Intact: Normal, Facial Palsey w/Forehead Movement: Normal , Facial P[place]y w/o Forehead Movement: Normal, Facial Sensation: Normal, Gag Reflex: Normal, Nystagmus: Normal, Tongue Deviation: Normal Cerebellar Function: Finger to Nose: Normal Neuro motor strength exam: Left Upper Extremity: 5, Right Upper Extremity: 5, Left Lower Extremity: 5, Right Lower Extremity: 5 - Psychiatric Exam Psychiatric exam: Normal Affect, Normal Mood - Skin Skin Exam: Intact, Normal Color, Warm Results - Vital Signs Recent Vital Signs: Last Vital Signs Temp 97.7 F 09/07/17 07:00 Pulse 63 09/07/17 07:00 Resp 20 09/07/17 07:00 BP 107/68 09/07/17 07:00 Pulse Ox 96 09/07/17 07:00 - Labs Result Diagrams: 09/07/17 06:52 09/07/17 06:52 Labs: Laboratory Results - last 24 hr 09/06/17 09/06/17 09/06/17 15:05 15:16 15:16 WBC 8.0 RBC 4.23 Hgb 10.2 L D Hct 32.2 L MCV 76.2 L D MCH 24.2 L MCHC 31.7 L RDW 16.3 H Plt Count 303 MPV 8.9 Neut % (Auto) 51.6 Lymph % (Auto) 33.3 [place] % (Auto) 9.4 Eos % (Auto) 4.3 H Baso % (Auto) 1.4 Neut # (Auto) 4.1 Lymph # (Auto) 2.7 [place] # (Auto) 0.8 Eos # (Auto) 0.3 Baso # (Auto) 0.1 PT 11.6 INR 1.1 APTT 32 Sodium Potassium Chloride Carbon Dioxide Anion Gap BUN Creatinine Est GFR ( Amer) Est GFR (Non-Af Amer) POC Glucose (mg/dL) 96 Random Glucose Hemoglobin A1c Calcium Phosphorus Magnesium Total Bilirubin AST ALT Alkaline Phosphatase Troponin I Total Protein Albumin Globulin Albumin/Globulin Ratio Triglycerides Cholesterol LDL Cholesterol Direct HDL Cholesterol Free T4 TSH 3rd Generation Urine Color Urine Clarity Urine pH Ur Specific [place] Urine Protein Urine Glucose (UA) Urine Ketones Urine Blood Urine Nitrate Urine Bilirubin Urine Urobilinogen Ur Leukocyte Esterase Urine WBC (Auto) Urine RBC (Auto) Ur Squamous Epith Cells Urine Bacteria 09/06/17 09/06/17 09/06/17 15:16 15:16 15:16 WBC RBC Hgb Hct MCV MCH MCHC RDW Plt Count MPV Neut % (Auto) Lymph % (Auto) [place] % (Auto) Eos % (Auto) Baso % (Auto) Neut # (Auto) Lymph # (Auto) [place] # (Auto) Eos # (Auto) Baso # (Auto) PT INR APTT Sodium 143 Potassium 4.3 Chloride 107 Carbon Dioxide 27 Anion Gap 14 BUN 16 Creatinine 0.8 Est GFR ( Amer) > 60 Est GFR (Non-Af Amer) > 60 POC Glucose (mg/dL) Random Glucose 100 Hemoglobin A1c 6.0 Calcium 9.0 Phosphorus Magnesium Total Bilirubin 0.7 AST 24 ALT 30 Alkaline Phosphatase 84 Troponin I < 0.0120 Total Protein 7.6 Albumin 4.2 Globulin 3.4 Albumin/Globulin Ratio 1.2 Triglycerides 66 D Cholesterol 161 LDL Cholesterol Direct 102 HDL Cholesterol 42 Free T4 TSH 3rd Generation Urine Color Yellow Urine Clarity Hazy Urine pH 5.0 Ur Specific [place] 1.020 Urine Protein Negative Urine Glucose (UA) Normal Urine Ketones Negative Urine Blood Negative Urine Nitrate Negative Urine Bilirubin Negative Urine Urobilinogen Normal Ur Leukocyte Esterase Trace Urine WBC (Auto) 4 Urine RBC (Auto) 1 Ur Squamous Epith Cells 3 Urine Bacteria Rare 09/07/17 09/07/17 09/07/17 06:52 06:52 06:52 WBC 7.6 RBC 4.22 Hgb 10.1 L Hct 31.5 L MCV 74.7 L MCH 23.8 L MCHC 31.9 L RDW 16.2 H Plt Count 295 MPV 9.2 Neut % (Auto) 44.0 L Lymph % (Auto) 39.4 [place] % (Auto) 9.8 Eos % (Auto) 5.6 H Baso % (Auto) 1.2 Neut # (Auto) 3.3 Lymph # (Auto) 3.0 [place] # (Auto) 0.7 Eos # (Auto) 0.4 Baso # (Auto) 0.1 PT INR APTT Sodium 143 Potassium 4.1 Chloride 108 H Carbon Dioxide 25 Anion Gap 15 BUN 14 Creatinine 0.7 Est GFR ( Amer) > 60 Est GFR (Non-Af Amer) > 60 POC Glucose (mg/dL) Random Glucose 106 H Hemoglobin A1c Calcium 8.5 L Phosphorus 3.2 Magnesium 2.0 Total Bilirubin 0.5 AST 28 ALT 27 Alkaline Phosphatase 75 Troponin I Total Protein 6.6 Albumin 3.6 Globulin 3.0 Albumin/Globulin Ratio 1.2 Triglycerides Cholesterol LDL Cholesterol Direct HDL Cholesterol Free T4 0.83 TSH 3rd Generation 2.74 Urine Color Urine Clarity Urine pH Ur Specific [place] Urine Protein Urine Glucose (UA) Urine Ketones Urine Blood Urine Nitrate Urine Bilirubin Urine Urobilinogen Ur Leukocyte Esterase Urine WBC (Auto) Urine RBC (Auto) Ur Squamous Epith Cells Urine Bacteria Assessment & Plan - Assessment and Plan (Free Text) Assessment: 67 yo F, PMHx of CVA with residual R sided weakness (2006), Hyperlipidemia, and COPD presents to the ED complaining of gradually increased RLE weakness for the past month, as well as RUE and R facial swelling that has since resolved. No acute infarcts on recent head CT. Patient strength clinically improved. No acute neurological deficits noted on exam. Plan: 1. Increased RLE weakness --Patient cleared from neurological standpoint. Can follow up with Dr. Driscoll in outpatient setting and complete MRI outpatient as well Management as per Dr. Driscoll
--- NOTE | 2017-09-07 15:13 | VASCLAB ---
PROCEDURE: HISTORY: Hx CVA increasing R leg weakness. COMPARISON: None available. TECHNIQUE: Grayscale and duplex Doppler evaluation of the cervical carotid and vertebral arteries were performed. The common carotid, carotid bifurcations and cervical Internal Carotid Artery (ICA) and proximal External Carotid Artery (ECA) were evaluated. The vertebral arteries were evaluated for gross patency and flow direction. Report prepared by Esau Schwartz, BS, RVT FINDINGS: RIGHT CAROTID ARTERIES: 1. Common Carotid Artery: No significant focal plaque formation of the right common carotid artery. Maximum Peak Systolic velocity: 74 cm/sec: End-diastolic velocity 17 cm/sec. 2. Carotid Bifurcation: plaque formation. Maximum Peak Systolic velocity: 83 cm/sec: End-diastolic velocity 11 cm/sec. 3. Internal Carotid Artery: Plaque description: 3.1. Proximal Segment: Peak systolic velocity 92 cm/sec: End-diastolic velocity 28 cm/sec - % stenosis 0-15% 3.2. Middle Segment: Peak systolic velocity 93 cm/sec: End-diastolic velocity 29 cm/sec - % stenosis 0-15% 3.3. Distal Segment: Peak systolic velocity 76 cm/sec: End-diastolic velocity 25 cm/sec - % stenosis 0-15% 4. External Carotid Artery: No significant focal plaque formation. Peak systolic velocity 83 cm/sec 5. ICA/CCA Ratio: 1.3 LEFT CAROTID ARTERIES: 1. Common Carotid Artery: No significant focal plaque formation of the left common carotid artery. Maximum Peak Systolic velocity: 76 cm/sec: End-diastolic velocity 19 cm/sec. 2. Carotid Bifurcation: plaque formation. Maximum Peak Systolic velocity: 70 cm/sec: End-diastolic velocity 19 cm/sec. 3. Internal Carotid Artery: Plaque description: 3.1. Proximal Segment: Peak systolic velocity 85 cm/sec: End-diastolic velocity 15 cm/sec - % stenosis 0-15% 3.2. Middle Segment: Peak systolic velocity 75 cm/sec: End-diastolic velocity 19 cm/sec - % stenosis 0-15% 3.3. Distal Segment: Peak systolic velocity 62 cm/sec: End-diastolic velocity 19 cm/sec - % stenosis 0-15% 4. External Carotid Artery: No significant focal plaque formation. Peak systolic velocity 112 cm/sec 5. ICA/CCA Ratio: 1.1 VERTEBRAL ARTERIES: 1. Right Vertebral Artery: The right vertebral artery flow direction is antegrade. 2. Left Vertebral Artery: The left vertebral artery flow direction is antegrade. OTHER FINDINGS: 1. Right Brachial Blood pressure: 124 mmHg. 2. Left Brachial Blood pressure: 120 mmHg. IMPRESSION: RIGHT: Duplex scan does not suggest hemodynamically significant stenosis of the right extracranial carotid arteries. LEFT: Duplex scan does not suggest hemodynamically significant stenosis of the left extracranial carotid arteries.
[2017-09-07 16:46] VITALS: BP 108/61; PULSE 64; TEMP 98.9; O2SAT 100
--- NOTE | 2017-09-07 17:09 | CP.PCM.DIS ---
<JuliannaFelicia Y - Last Filed: 09/07/17 17:00> Provider - Provider Date of Admission: 09/06/17 16:30 Attending physician: Urbano Ferrera MD Time Spent in preparation of Discharge (in minutes): 60 Hospital Course - Lab Results Lab Results: Most Recent Lab Values WBC 7.6 K/uL (4.8-10.8) 09/07/17 06:52 RBC 4.22 Mil/uL (3.80-5.20) 09/07/17 06:52 Hgb 10.1 g/dL (11.0-16.0) L 09/07/17 06:52 Hct 31.5 % (34.0-47.0) L 09/07/17 06:52 MCV 74.7 fL (81.0-99.0) L 09/07/17 06:52 MCH 23.8 pg (27.0-31.0) L 09/07/17 06:52 MCHC 31.9 g/dL (33.0-37.0) L 09/07/17 06:52 RDW 16.2 % (11.5-14.5) H 09/07/17 06:52 Plt Count 295 K/uL (130-400) 09/07/17 06:52 MPV 9.2 fL (7.2-11.7) 09/07/17 06:52 Neut % (Auto) 44.0 % (50.0-75.0) L 09/07/17 06:52 Lymph % (Auto) 39.4 % (20.0-40.0) 09/07/17 06:52 [place] % (Auto) 9.8 % (0.0-10.0) 09/07/17 06:52 Eos % (Auto) 5.6 % (0.0-4.0) H 09/07/17 06:52 Baso % (Auto) 1.2 % (0.0-2.0) 09/07/17 06:52 Neut # (Auto) 3.3 K/uL (1.8-7.0) 09/07/17 06:52 Lymph # (Auto) 3.0 K/uL (1.0-4.3) 09/07/17 06:52 [place] # (Auto) 0.7 K/uL (0.0-0.8) 09/07/17 06:52 Eos # (Auto) 0.4 K/uL (0.0-0.7) 09/07/17 06:52 Baso # (Auto) 0.1 K/uL (0.0-0.2) 09/07/17 06:52 PT 11.6 SECONDS (9.7-12.2) 09/06/17 15:16 INR 1.1 09/06/17 15:16 APTT 32 SECONDS (21-34) 09/06/17 15:16 Sodium 143 mmol/L (132-148) 09/07/17 06:52 Potassium 4.1 mmol/L (3.6-5.2) 09/07/17 06:52 Chloride 108 mmol/L (98-107) H 09/07/17 06:52 Carbon Dioxide 25 mmol/L (22-30) 09/07/17 06:52 Anion Gap 15 (10-20) 09/07/17 06:52 BUN 14 mg/dL (7-17) 09/07/17 06:52 Creatinine 0.7 mg/dL (0.7-1.2) 09/07/17 06:52 Est GFR ( Amer) > 60 09/07/17 06:52 Est GFR (Non-Af Amer) > 60 09/07/17 06:52 POC Glucose (mg/dL) 96 mg/dL (65-110) 09/06/17 15:05 Random Glucose 106 mg/dL (65-105) H 09/07/17 06:52 Hemoglobin A1c 6.0 % (4.2-6.5) 09/06/17 15:16 Calcium 8.5 mg/dl (8.6-10.4) L 09/07/17 06:52 Phosphorus 3.2 mg/dL (2.5-4.5) 09/07/17 06:52 Magnesium 2.0 mg/dL (1.6-2.3) 09/07/17 06:52 Total Bilirubin 0.5 mg/dL (0.2-1.3) 09/07/17 06:52 AST 28 U/L (14-36) 09/07/17 06:52 ALT 27 U/L (9-52) 09/07/17 06:52 Alkaline Phosphatase 75 U/L (38-126) 09/07/17 06:52 Troponin I < 0.0120 ng/mL (0.00-0.120) 09/06/17 15:16 Total Protein 6.6 g/dL (6.3-8.3) 09/07/17 06:52 Albumin 3.6 g/dL (3.5-5.0) 09/07/17 06:52 Globulin 3.0 gm/dL (2.2-3.9) 09/07/17 06:52 Albumin/Globulin Ratio 1.2 (1.0-2.1) 09/07/17 06:52 Triglycerides 66 mg/dL (0-149) D 09/06/17 15:16 Cholesterol 161 mg/dL (0-199) 09/06/17 15:16 LDL Cholesterol Direct 102 mg/dL (0-129) 09/06/17 15:16 HDL Cholesterol 42 mg/dL (30-70) 09/06/17 15:16 Free T4 0.83 ng/dL (0.78-2.19) 09/07/17 06:52 TSH 3rd Generation 2.74 mIU/L (0.46-4.68) 09/07/17 06:52 Urine Color Yellow (YELLOW) 09/06/17 15:16 Urine Clarity Hazy (Clear) 09/06/17 15:16 Urine pH 5.0 (5.0-8.0) 09/06/17 15:16 Ur Specific [place] 1.020 (1.003-1.030) 09/06/17 15:16 Urine Protein Negative mg/dL (NEGATIVE) 09/06/17 15:16 Urine Glucose (UA) Normal mg/dL (Normal) 09/06/17 15:16 Urine Ketones Negative mg/dL (NEGATIVE) 09/06/17 15:16 Urine Blood Negative (NEGATIVE) 09/06/17 15:16 Urine Nitrate Negative (NEGATIVE) 09/06/17 15:16 Urine Bilirubin Negative (NEGATIVE) 09/06/17 15:16 Urine Urobilinogen Normal mg/dL (0.2-1.0) 09/06/17 15:16 Ur Leukocyte Esterase Trace Christiano/uL (Negative) 09/06/17 15:16 Urine WBC (Auto) 4 /hpf (0-5) 09/06/17 15:16 Urine RBC (Auto) 1 /hpf (0-3) 09/06/17 15:16 Ur Squamous Epith Cells 3 /hpf (0-5) 09/06/17 15:16 Urine Bacteria Rare (<OCC) 09/06/17 15:16 - Hospital Course Hospital Course: 67 yo Female with past medical history of CVA with residual R sided weakness ( 2006), Hyperlipidemia, and COPD presents to the ED complaining of gradual increase of RLE weakness for the past month, which worsens with ambulation and standing from seated position. Pt normally walks with cane and R leg brace. Patient complains of lower extremity swelling for the past week, also R eye and RUE swelling that began upon awaking today. States. Patient states her son became concerned because "she did not look good" prompting her to come to ED. No relieving factors noted. Patient denies fever, chills, headache, numbness, tingling, acute change in vision, acute change in hearing, chest pain, palpitations, shortness of breath. Patient came to [facility] due to increased weakness of the right side. CXR showed no active disease. Head CT was also negative for any active disease. The Carotid Doppler Study does not suggest hemodynamically significant stenosis of the right or left extracranial carotid arteries. Head MRI was contraindicated until the metallic status of her brain aneurysm clip was known. However, her clinical strength and mentation improved and Neurology determined an MRI could be done outpatient with followup. Patient stable for discharge per Dr. Ferrera. Patient should resume all home medications. There are no new medications to take. Patient should make an appointment and follow up with PMD within one week for this hospitalization as well as outpatient neurology to followup for an MRI. Patient should return to ED immediately if symptoms return or worsen. Instructions discussed with patient who understood and agreed. - Date & Time of H&P Date of H&P: 09/07/17 Time of H&P: 17:00 Discharge Exam - Head Exam Head Exam: ATRAUMATIC, NORMAL INSPECTION, NORMOCEPHALIC - Eye Exam Eye Exam: EOMI, Normal appearance, PERRL - ENT Exam ENT Exam: Mucous Membranes Moist, Normal Exam - Respiratory Exam Respiratory Exam: Clear to PA & Lateral, NORMAL BREATHING PATTERN, UNREMARKABLE. absent: Rales, Rhonchi, Wheezes, Respiratory Distress - Cardiovascular Exam Cardiovascular Exam: REGULAR RHYTHM, RRR, +S1, +S2. absent: JVD, Systolic Murmur - GI/Abdominal Exam GI & Abdominal Exam: Normal Bowel Sounds, Soft. absent: Tenderness - Extremities Exam Extremities exam: normal capillary refill, pedal edema, pedal pulses present Additional comments: right arm swelling - Neurological Exam Neurological exam: Alert, CN II-XII Intact, Normal Gait, Oriented x3, Reflexes Normal Additional comments: R sided weakness. Motor strength 4/5 in both right upper and lower extremities. - Psychiatric Exam Psychiatric exam: Normal Affect, Normal Mood - Skin Skin Exam: Dry, Intact, Normal Color, Warm Discharge Plan - Follow Up Plan Condition: GOOD Disposition: HOME/ ROUTINE Instructions: Heart Healthy Diet, Heart Failure, Adult (DC), Generalized Weakness (DC), Exacerbation of COPD (DC) Additional Instructions: Patient stable for discharge per Dr. Ferrera. Patient should resume all home medications. There are no new medications to take. Patient should make an appointment and follow up with PMD within one week for this hospitalization as well as outpatient neurology to followup for an MRI. Patient should return to ED immediately if symptoms return or worsen. Instructions discussed with patient who understood and agreed. Referrals: Gianfranco Driscoll MD [Staff Provider] - <Urbano Ferrera - Last Filed: 09/08/17 17:39> Provider - Provider Date of Admission: 09/06/17 16:30 Attending physician: Urbano Ferrera MD Hospital Course - Lab Results Lab Results: Most Recent Lab Values WBC 7.6 K/uL (4.8-10.8) 09/07/17 06:52 RBC 4.22 Mil/uL (3.80-5.20) 09/07/17 06:52 Hgb 10.1 g/dL (11.0-16.0) L 09/07/17 06:52 Hct 31.5 % (34.0-47.0) L 09/07/17 06:52 MCV 74.7 fL (81.0-99.0) L 09/07/17 06:52 MCH 23.8 pg (27.0-31.0) L 09/07/17 06:52 MCHC 31.9 g/dL (33.0-37.0) L 09/07/17 06:52 RDW 16.2 % (11.5-14.5) H 09/07/17 06:52 Plt Count 295 K/uL (130-400) 09/07/17 06:52 MPV 9.2 fL (7.2-11.7) 09/07/17 06:52 Neut % (Auto) 44.0 % (50.0-75.0) L 09/07/17 06:52 Lymph % (Auto) 39.4 % (20.0-40.0) 09/07/17 06:52 [place] % (Auto) 9.8 % (0.0-10.0) 09/07/17 06:52 Eos % (Auto) 5.6 % (0.0-4.0) H 09/07/17 06:52 Baso % (Auto) 1.2 % (0.0-2.0) 09/07/17 06:52 Neut # (Auto) 3.3 K/uL (1.8-7.0) 09/07/17 06:52 Lymph # (Auto) 3.0 K/uL (1.0-4.3) 09/07/17 06:52 [place] # (Auto) 0.7 K/uL (0.0-0.8) 09/07/17 06:52 Eos # (Auto) 0.4 K/uL (0.0-0.7) 09/07/17 06:52 Baso # (Auto) 0.1 K/uL (0.0-0.2) 09/07/17 06:52 PT 11.6 SECONDS (9.7-12.2) 09/06/17 15:16 INR 1.1 09/06/17 15:16 APTT 32 SECONDS (21-34) 09/06/17 15:16 Sodium 143 mmol/L (132-148) 09/07/17 06:52 Potassium 4.1 mmol/L (3.6-5.2) 09/07/17 06:52 Chloride 108 mmol/L (98-107) H 09/07/17 06:52 Carbon Dioxide 25 mmol/L (22-30) 09/07/17 06:52 Anion Gap 15 (10-20) 09/07/17 06:52 BUN 14 mg/dL (7-17) 09/07/17 06:52 Creatinine 0.7 mg/dL (0.7-1.2) 09/07/17 06:52 Est GFR ( Amer) > 60 09/07/17 06:52 Est GFR (Non-Af Amer) > 60 09/07/17 06:52 POC Glucose (mg/dL) 96 mg/dL (65-110) 09/06/17 15:05 Random Glucose 106 mg/dL (65-105) H 09/07/17 06:52 Hemoglobin A1c 6.0 % (4.2-6.5) 09/06/17 15:16 Calcium 8.5 mg/dl (8.6-10.4) L 09/07/17 06:52 Phosphorus 3.2 mg/dL (2.5-4.5) 09/07/17 06:52 Magnesium 2.0 mg/dL (1.6-2.3) 09/07/17 06:52 Total Bilirubin 0.5 mg/dL (0.2-1.3) 09/07/17 06:52 AST 28 U/L (14-36) 09/07/17 06:52 ALT 27 U/L (9-52) 09/07/17 06:52 Alkaline Phosphatase 75 U/L (38-126) 09/07/17 06:52 Troponin I < 0.0120 ng/mL (0.00-0.120) 09/06/17 15:16 Total Protein 6.6 g/dL (6.3-8.3) 09/07/17 06:52 Albumin 3.6 g/dL (3.5-5.0) 09/07/17 06:52 Globulin 3.0 gm/dL (2.2-3.9) 09/07/17 06:52 Albumin/Globulin Ratio 1.2 (1.0-2.1) 09/07/17 06:52 Triglycerides 66 mg/dL (0-149) D 09/06/17 15:16 Cholesterol 161 mg/dL (0-199) 09/06/17 15:16 LDL Cholesterol Direct 102 mg/dL (0-129) 09/06/17 15:16 HDL Cholesterol 42 mg/dL (30-70) 09/06/17 15:16 Free T4 0.83 ng/dL (0.78-2.19) 09/07/17 06:52 TSH 3rd Generation 2.74 mIU/L (0.46-4.68) 09/07/17 06:52 Urine Color Yellow (YELLOW) 09/06/17 15:16 Urine Clarity Hazy (Clear) 09/06/17 15:16 Urine pH 5.0 (5.0-8.0) 09/06/17 15:16 Ur Specific [place] 1.020 (1.003-1.030) 09/06/17 15:16 Urine Protein Negative mg/dL (NEGATIVE) 09/06/17 15:16 Urine Glucose (UA) Normal mg/dL (Normal) 09/06/17 15:16 Urine Ketones Negative mg/dL (NEGATIVE) 09/06/17 15:16 Urine Blood Negative (NEGATIVE) 09/06/17 15:16 Urine Nitrate Negative (NEGATIVE) 09/06/17 15:16 Urine Bilirubin Negative (NEGATIVE) 09/06/17 15:16 Urine Urobilinogen Normal mg/dL (0.2-1.0) 09/06/17 15:16 Ur Leukocyte Esterase Trace Christiano/uL (Negative) 09/06/17 15:16 Urine WBC (Auto) 4 /hpf (0-5) 09/06/17 15:16 Urine RBC (Auto) 1 /hpf (0-3) 09/06/17 15:16 Ur Squamous Epith Cells 3 /hpf (0-5) 09/06/17 15:16 Urine Bacteria Rare (<OCC) 09/06/17 15:16 Attending/Attestation - Attestation I have personally seen and examined this patient.: Yes I have fully participated in the care of the patient.: Yes I have reviewed all pertinent clinical information, including history, physical exam and plan: Yes Notes (Text): Patient was seen and examined by me. She is ambulating at her baseline,no complain,feels good/ edema resolved.Shw wants to go home. D/w Dr Driscoll. Discharge home on home meds and follow her primary out pt
--- NOTE | 2017-09-09 21:18 | CARD ---
APPROVED REPORT EKG Measurement Heart [id number] <Conclusion> Normal sinus rhythm Incomplete right bundle branch block Borderline ECG
== END 2017-09-07 18:42 | disposition home or self-care (01) | DRG 948 ==
LOC: C.ER 13:56 → C.9E 16:30 → C.6T 18:39
PROVIDERS: ADMIT Internal Medicine; ATTEND Internal Medicine
DX: R53.1 Weakness (principal); I69.351 Hemiplegia and hemiparesis following cerebral infarction affecting right dominant side; G93.89 Other specified disorders of brain; E78.00 Pure hypercholesterolemia, unspecified; J44.9 Chronic obstructive pulmonary disease, unspecified; Z80.3 Family history of malignant neoplasm of breast; Z87.891 Personal history of nicotine dependence; Z90.49 Acquired absence of other specified parts of digestive tract